=== PATIENT | female | born 1945 | race Asian ===

== ENCOUNTER 2017-06-23 13:38 | Emergency (ER) | payer OTHER, MEDICARE ==
[2017-06-23 13:52] VITALS: TEMP 98.1; BMI 23.9
--- NOTE | 2017-06-23 15:13 | PDOC ---
History of Present Illness - General History Source: Patient Exam Limitations: No Limitations - History of Present Illness Initial Comments: 06/23/17 16:57 The patient is a 71-year-old female, with a significant past medical history of aneurysm with persistent L-sided weakness, hypertension, hyperlipidemia, and diabetes, who presents to the ED s/p fall last night. Pt was using her stair lift and and tripped as she got up out of her chair. Pt reports that she fell into the the doorframe, injuring her left-side. Pt denies loss of consciousness or head trauma. She now is complaining of left rib pain, left hip pain, and L back pain. She describes the pain as dull in sensation and rates the pain an 8/ 10 in severity. She took tylenol at 11am with some relief of symptoms. Pt was able to ambulate after the incident using her cane (her baseline). She decided to come into the ED today because the rib pain is getting worse. She denies having any other symptoms or injuries. <Ramandeep Bravo - Last Filed: 06/23/17 16:57> <Carlita Holcomb - Last Filed: 06/24/17 22:13> - General Chief Complaint: Injury Stated Complaint: FALL, RIBS PAIN Past History <Ramandeep Bravo - Last Filed: 06/23/17 16:57> - Past Medical History CVA: No (BRAIN ANEURYSM) COPD: No - Surgical History Neurologic Surgery: Yes - Suicide/Smoking/Psychosocial Hx Smoking History: Never smoked Information on smoking cessation initiated: No Hx Alcohol Use: No Drug/Substance Use Hx: No Substance Use Type: None <Carlita Holcomb - Last Filed: 06/24/17 22:13> - Past Medical History Allergies/Adverse Reactions: Allergies Allergy/AdvReac Type Severity Reaction Status Date / Time Penicillins Allergy Rash Verified 06/23/17 13:52 Home Medications: Ambulatory Orders Unobtainable [Unobtainable] 06/23/17 Review of Systems - Review of Systems Able to Perform ROS?: Yes Comments:: 06/23/17 16:58 GENERAL/CONSTITUTIONAL: No fever or chills. No weakness. HEAD, EYES, EARS, NOSE AND THROAT: No change in vision. No ear pain or discharge. No sore throat. GASTROINTESTINAL: No nausea, vomiting, diarrhea or constipation. GENITOURINARY: No dysuria, frequency, or change in urination. CARDIOVASCULAR: No chest pain or shortness of breath. RESPIRATORY: No cough, wheezing, or hemoptysis. MUSCULOSKELETAL: +left-sided rib pain, left hip pain, spine pain. No joint swelling or pain. No neck pain. SKIN: No rash NEUROLOGIC: No headache, vertigo, loss of consciousness, or change in strength/ sensation. ENDOCRINE: No increased thirst. No abnormal weight change. HEMATOLOGIC/LYMPHATIC: No anemia, easy bleeding, or history of blood clots. ALLERGIC/IMMUNOLOGIC: No hives or skin allergy. <Ramandeep Bravo - Last Filed: 06/23/17 16:57> *Physical Exam - Vital Signs Last Vital Signs Temp Pulse Resp BP Pulse Ox 98.1 F 73 20 193/88 97 06/23/17 13:45 06/23/17 13:45 06/23/17 13:45 06/23/17 13:45 06/23/17 13:45 - Physical Exam Comments: 06/23/17 16:59 GENERAL: Awake, alert, and fully oriented, in no acute distress HEAD: No signs of trauma EYES: PERRLA, EOMI, sclera anicteric, conjunctiva clear ENT: Auricles normal inspection, hearing grossly normal, nares patent, oropharynx clear without exudates. Moist mucosa NECK: Normal ROM, supple, no lymphadenopathy, JVD, or masses LUNGS: Breath sounds equal, clear to auscultation bilaterally. No wheezes, and no crackles HEART: Regular rate and rhythm, normal S1 and S2, no murmurs, rubs or gallops. ABDOMEN: Soft, nontender, normoactive bowel sounds. No guarding, no rebound. No masses EXTREMITIES: Normal range of motion, no edema. No clubbing or cyanosis. No cords, erythema, or tenderness BACK: No midline spinal tenderness in cervical/thoracic/lumbar region. + paraspinal lumbar ttp. MSK: +L sided midaxillary ttp along ribs 7-9. No deformities or crepitus. NEUROLOGICAL: Normal speech, +L sided facial droop sparing forehead, +3/5 strength in LUE and 4/5 strength in the LLE. Pt able to ambulate at her baseline in the ED with her cane. Pelvis is stable. SKIN: Warm, Dry, normal turgor, no rashes or lesions noted. <Ramandeep Bravo - Last Filed: 06/23/17 16:57> - Vital Signs Last Vital Signs Temp Pulse Resp BP Pulse Ox 98.1 F 73 20 193/88 97 06/23/17 13:45 06/23/17 13:45 06/23/17 13:45 06/23/17 13:45 06/23/17 13:45 <Carlita Holcomb - Last Filed: 06/24/17 22:13> ED Treatment Course - Medications Given in the ED: ED Medications Discontinued Medications Generic Name Dose Route Start Last Admin Trade Name Freq PRN Reason Stop Dose Admin Acetaminophen 650 mg 06/23/17 16:08 06/23/17 16:25 Tylenol - PO 06/23/17 16:09 650 mg ONCE ONE Administration <Ramandeep Bravo - Last Filed: 06/23/17 16:57> Medical Decision Making - Medical Decision Making 06/23/17 17:03 71yo F w MMP p/w mechanical fall. Pt on no AC. Does not believe she struck her head. Has ttp to L rib. Able to ambulate at her baseline with cane. Given age, will obtain imaging of head, ribs, chest and pelvis to r/o acute bleeding or fractures. Pt requests tylenol for pain. Pt's blood pressure is elevated, and she states she does not take BP meds. Other than pain from fall, pt does not have other sxs. BP possibly elevated 2/2 pain. Will recheck BP after pain meds. Pt signed out to Dr. Skaggs for further management. <Carlita Holcomb - Last Filed: 06/24/17 22:13> *DC/Admit/Observation/Transfer - Attestations Scribe Attestion: 06/23/17 17:00 Documentation prepared by Ramandeep Bravo, acting as medical record librarians teacher for Carlita Holcomb MD. <Ramandeep Bravo - Last Filed: 06/23/17 16:57> <Carlita Holcomb - Last Filed: 06/24/17 22:13> Diagnosis at time of Disposition: Fall, Head trauma, Rib pain on left side - Discharge Dispostion Disposition: HOME Condition at time of disposition: Stable - Referrals Referrals: Carmina,Kirt J, MD [Primary Care Provider] - - Patient Instructions Printed Discharge Instructions: DI for Rib Contusion, DI for Closed Head Injury Additional Instructions: Your blood pressure was elevated in the emergency department. Please follow up with Dr. Grewal within 1-2 days for a recheck of your blood pressure. Return to the emergency department if you have any new, worsening, or concerning symptoms. - Post Discharge Activity
[2017-06-23] MEDS ORDERED: ACETAMINOPHEN 325 MG TABLET (FP) PO ONE (16:08)
[2017-06-23] MEDS ORDERED: ACETAMINOPHEN 650 MG/20.3 ML ORAL SOLUTION (CUPS) ONE (16:27)
[2017-06-23 17:56] VITALS: BP 154/96; PULSE 57
--- NOTE | 2017-06-23 19:54 | PDOC ---
*Physical Exam - Vital Signs Last Vital Signs Temp Pulse Resp BP Pulse Ox 98.1 F 57 L 20 154/96 95 06/23/17 13:45 06/23/17 17:56 06/23/17 13:45 06/23/17 17:56 06/23/17 17:56 ED Treatment Course - Medications Given in the ED: ED Medications Discontinued Medications Generic Name Dose Route Start Last Admin Trade Name Freq PRN Reason Stop Dose Admin Acetaminophen 650 mg 06/23/17 16:08 06/23/17 16:25 Tylenol - PO 06/23/17 16:09 650 mg ONCE ONE Administration Medical Decision Making - Medical Decision Making 06/23/17 19:[address] scan of head and c spine is finally read ct scan head no acute intracranial pathology cr scan c spine no fracture , no subluxation plain films no rib fracture appreciated *DC/Admit/Observation/Transfer Diagnosis at time of Disposition: Rib pain on left side Fall Qualifiers: Encounter type: initial encounter Qualified Code(s): W19.XXXA - Unspecified fall, initial encounter Head trauma Qualifiers: Encounter type: initial encounter Qualified Code(s): S09.90XA - Unspecified injury of head, initial encounter - Discharge Dispostion Disposition: HOME Condition at time of disposition: Stable - Referrals Referrals: Kirt Grewal MD [Primary Care Provider] - - Patient Instructions Printed Discharge Instructions: DI for Rib Contusion, DI for Closed Head Injury Additional Instructions: Your blood pressure was elevated in the emergency department. Please follow up with Dr. Grewal within 1-2 days for a recheck of your blood pressure. Return to the emergency department if you have any new, worsening, or concerning symptoms. - Post Discharge Activity
== END 2017-06-23 20:12 | disposition home or self-care (01) ==
LOC: JER 13:38
DX: S09.8XXA Other specified injuries of head, initial encounter (principal); S20.211A Contusion of right front wall of thorax, initial encounter; W07.XXXA Fall from chair, initial encounter; Y93.89 Activity, other specified; Y92.018 Other place in single-family (private) house as the place of occurrence of the external cause
CPT/HCPCS: 70450-TC; 71020-TC; 72125-TC; 72170-TC; 99283-25

== ENCOUNTER 2018-02-14 09:07 | Day surgery (SDC) | payer OTHER, MEDICARE ==
[2018-02-12 15:26] VITALS: BMI 24.0
[2018-02-14] MEDS ORDERED: VASOPRESSIN 20 UNITS/ML VIAL IV ONE ×2 (10:25→11:02)
[2018-02-14] MEDS ORDERED: MIDAZOLAM HCL 2 MG/2 ML SINGLE DOSE VIAL ONE (11:16)
[2018-02-14] MEDS ORDERED: PROPOFOL 20 ML ONE (11:21)
[2018-02-14] MEDS ORDERED: ROCURONIUM BROMIDE 50 MG/5 ML VIAL ONE (11:22)
--- NOTE | 2018-02-14 11:30 | OP ---
Operative Note - Note: Operative Date: 02/14/18 Pre-Operative Diagnosis: cystocele and hans Operation: cystocele repair and tot Findings: gr. 2 cystocele and marshal test pos. Implants: tot urethral sling Post-Operative Diagnosis: Same as Pre-op Surgeon: Renuka Grewal Superintendent Pipelines: Renuka Grewal Anesthesia: General Specimens Removed: vaginal mucosa Estimated Blood Loss (mls): 40 Drains & Tubes with Location: vag. packing and 16f 10cc quispe Drains, Volume Out (mls): 0 Blood Volume Replaced (mls): 0 Fluid Volume Replaced (mls): 0 Operative Report Dictated: Yes
[2018-02-14] MEDS ORDERED: BACITRACIN 15 GM TUBE TOPICAL OINTMENT ONE (12:00)
[2018-02-14] MEDS ORDERED: ONDANSETRON 4 MG/2 ML VIAL IVPUSH PRN (12:27)
[2018-02-14] MEDS ORDERED: LACTATED RINGERS SOLUTION 1,000 ML IV SCH (12:30)
--- NOTE | 2018-02-14 13:12 | CONS ---
DATE OF CONSULTATION: 02/14/2018 HISTORY OF PRESENT ILLNESS: Patient is a 72-year-old female with a 2-year history of stress urinary incontinence. Patient has failed medical treatment as well as Kegel exercises. She does use 4 to 6 pads a day. 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 Patient is , 1 , 3 spontaneous vaginal deliveries. She has undergone brain aneurysmal surgery with some left hemiparesis. She also has a history of dyslipidemia. She denies any cardiac disease. She is a diabetic as well as a hypertensive. ALLERGIES: She is allergic to PENICILLIN. PHYSICAL EXAMINATION: General: Revealed a well-developed adult female. Abdomen: Soft. Pelvic: Revealed a grade 2 cystocele with atrophic vaginitis. Tio test is positive. Vaginal mucosa was atrophic. IMPRESSION: Stress urinary incontinence with a grade 2 cystocele. RECOMMENDATIONS: Patient has failed anticholinergic therapy as well as Kegel exercises. Patient will undergo a transvaginal urethropexy as well as a cystocele repair. This was explained fully to the patient and she agrees. Thank you. Ml [id number]
[2018-02-14 13:39] VITALS: TEMP 97.9
[2018-02-14] MEDS ORDERED: ACETAMINOPHEN 325 MG TABLET (FP) PO PRN (14:42)
[2018-02-14 17:18] VITALS: BP 150/80; PULSE 80
--- NOTE | 2018-03-22 08:19 | OP ---
DATE OF OPERATION: 02/14/2018 PREOPERATIVE DIAGNOSES: Cystocele and stress urinary incontinence. POSTOPERATIVE DIAGNOSES: Grade 2 cystocele, positive Tio test. OPERATIVE PROCEDURE: Cystocele repair and transobturator taping. ANESTHESIA: General. Under the above-stated anesthesia, patient is prepped and draped in the usual sterile manner. She is placed in the dorsal lithotomy position. Stay sutures were placed on either side of the vagina using the labia majora. Amezcua catheter was placed into the urethra. A weighted vaginal speculum was placed on the floor of the vagina. Inspection of the roof revealed a grade 2 cystocele. A vertical incision was made from the mid urethra to the cervical os. This was carried down through skin and subcutaneous tissue. The base of the bladder was then plicated using 3-0 Vicryl suture ligatures. The tendinous arches were approximated using 2-0 Vicryl suture ligatures. Excess vaginal mucosa was excised and sent to Pathology. Transobturator taping was then placed per the obturator canal from the internal thigh and brought out the ipsilateral side of the ureterovesical angle. The needle was placed on the contralateral sides, and the tape was grasped and brought out the obturator canal. The tape was placed at the mid-urethral area. No pressure was placed on the urethra. The tape was then cut at the skin level. Vaginal mucosa was closed using running 3-0 Vicryl suture ligatures. The wounds in the obturator canal were closed with yara. Half-inch packing was inserted into the vaginal orifice. The 16-[place] Amezcua was connected to a leg bag. The patient tolerated the procedure well. She returned to the recovery room in good condition. Ml [id number]
== END 2018-02-14 16:00 | disposition home or self-care (01) ==
LOC: JASU-SURG 09:07
PROVIDERS: ATTEND Urology
PROC: 0JQC0ZZ Repair Pelvic Region Subcutaneous Tissue and Fascia, Open Approach (ICD-10-PCS; 2018-02-14)
PROC: 0TJB8ZZ Inspection of Bladder, Via Natural or Artificial Opening Endoscopic (ICD-10-PCS; 2018-02-14)
PROC: 0TSD0ZZ Reposition Urethra, Open Approach (ICD-10-PCS; principal; 2018-02-14 10:30)
DX: N39.3 Stress incontinence (female) (male) (principal); N81.10 Cystocele, unspecified
CPT/HCPCS: 82962; 94760